=== PATIENT | female | born 1965 | race Caucasian/White ===

== ENCOUNTER 2017-11-23 09:14 | Emergency (ER) | payer OTHER ==
[~2017-11-23] VITALS: Ht 170.2 cm; Wt 77.1 kg
[2017-11-23 09:14] VITALS: BP 132/78
[~2017-11-23 09:14] MED LIST: GUAI600T47 PO; SODI30SP NS
[2017-11-23] MEDS ORDERED: IPRATRPIUM/ALBUTEROL 0.5/2.5MG 3 ML NEBU. ONE (09:21)
[2017-11-23] MEDS ORDERED: IPRATRPIUM/ALBUTEROL 0.5/2.5MG 3 ML NEBU. NEB ONE (09:30)
[2017-11-23] MEDS ORDERED: predniSONE 20 MG TABLET PO ONE (10:15)
--- NOTE | 2017-11-23 10:25 | RAD ---
PA and lateral chest radiograph. History: Shortness air. Comparison: None. Findings: Cardiac silhouette is borderline in size. Bilateral lung bright appear clear without evidence of infiltrate, effusion, or pneumothorax. Bilateral long posterior spinal fusion rods are seen involving the thoracic and lumbar spine as well as multiple interlocking screws and a cerclage wires. S-shaped scoliosis of the thoracic and visualized lumbar spine is seen. Impression: 1. No acute cardiopulmonary process. 2. Borderline enlargement of cardiac silhouette. Electronically signed by: Malachi Campbell MD (11/23/2017 10:21 AM) [place] [id number]
[2017-11-23] MEDS ORDERED: ALBU8.5H8 INH (10:43)
[2017-11-23] MEDS ORDERED: PRED50TA PO (10:43)
--- NOTE | 2017-11-23 11:05 | ED.ADGEN ---
Past History Past Medical History: No Pertinent History, Other Past Surgical History: No Surgical History, Other Alcohol Use: Occasionally Drug Use: None Adult General Chief Complaint Chief Complaint Shortness of breath HPI HPI Patient is a 52-year-old female with remote history of bronchopneumonia bronchospasm presents with acute shortness breath with wheezing this morning after walking outdoors. Patient reports nonproductive cough, and chest tightness. Symptoms significant improved after arriving to the ED. No fever chills, nausea vomiting and sweats. No other acute symptoms or complaints. Patient is a nonsmoker. [] Review of Systems Review of Systems Review symptoms as per history of present illness. All other review symptoms are negative. All other systems were reviewed and found to be within normal limits, except as documented in this note. Current Medications Current Medications Current Medications Medications (Trade) Dose Ordered Sig/Loan Start Time Stop Time Status Last Admin Dose Admin Albuterol/ Ipratropium (Duoneb) 3 ml STK-MED ONCE 11/23/17 09:21 11/23/17 09:22 DC Prednisone (Prednisone) 60 mg 1X ONCE 11/23/17 10:15 11/23/17 10:16 DC 11/23/17 10:11 60 MG Allergies Allergies Allergies Coded Allergies Type Severity Reaction Last Updated Verified codeine Allergy Intermediate 03/24/14 Yes lactose Allergy Mild Diarrhea 03/24/14 Yes naproxen Adverse Reaction Intermediate MIGRAINE 03/24/14 No Physical Exam Physical Exam Constitutional: Well developed, well nourished, no acute distress, non-toxic appearance. [] HENT: Normocephalic, atraumatic, bilateral external ears normal, oropharynx moist, no oral exudates, nose normal. [] Eyes: PERRLA, EOMI, conjunctiva normal, no discharge. [] Neck: Normal range of motion, no tenderness, supple, no stridor. [] Cardiovascular:Heart rate regular rhythm, no murmur [] Lungs & Thorax: Respirations nonlabored, mildly diminished with coarse breath sounds bilaterally.[] Abdomen: Bowel sounds normal, soft, no tenderness, no masses, no pulsatile masses. [] Skin: Warm, dry, no erythema, no rash. [] Back: No illnesses noted.. [] Extremities: No tenderness, no cyanosis, no clubbing, ROM intact, no edema. [] Neurologic: Alert and oriented X 3, normal motor function, normal sensory function, no focal deficits noted. [] Psychologic: Affect normal, judgement normal, mood normal. [] Current Patient Data Vital Signs Vital Signs Date Time Temp Pulse Resp B/P (MAP) Pulse Ox O2 Delivery O2 Flow Rate FiO2 11/23/17 10:04 72 20 93 Room Air 11/23/17 09:14 97.7 EKG EKG [] Radiology/Procedures Radiology/Procedures [Chest x-ray: No acute cardiopulmonary disease.] Course & Med Decision Making Course & Med Decision Making Pertinent Labs and Imaging studies reviewed. (See chart for details) [Acute bronchitis with bronchospasm. Symptoms significantly improved. Return to the ED if new or worsening symptoms. ] Final Impression Final Impression [1. Acute bronchitis with bronchospasm] Dragon Disclaimer Dragon Disclaimer This electronic medical record was generated, in whole or in part, using a voice recognition dictation system. TAJ HENDERSON DO Nov 23, 2017 11:05
== END 2017-11-23 10:50 | disposition home or self-care (01) ==
LOC: ER 09:14
DX: J20.9 Acute bronchitis, unspecified (principal); Z88.5 Allergy status to narcotic agent; Z88.6 Allergy status to analgesic agent; Z91.011 Allergy to milk products
CPT/HCPCS: 71046; 94640; 99284; J7512; J7620

== ENCOUNTER 2018-07-24 09:59 | Emergency (ER) | payer OTHER ==
[~2018-07-24] VITALS: Ht 170.2 cm; Wt 66.2 kg
[~2018-07-24 09:59] MED LIST changes: +ALBU2.5V8 INH; +PRED50TA PO
--- NOTE | 2018-07-24 10:44 | PHYS DOC ---
Past History Past Medical History: No Pertinent History, Other Past Surgical History: No Surgical History, Other Alcohol Use: Occasionally Drug Use: None Adult General Chief Complaint Chief Complaint: BACK INJURY HPI HPI 53-year-old female presents with left rib pain and low back pain. 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 She went to sit down and didn't realize that her chair had been moved. The patient fell to the floor but struck the left lower ribs on the front of the chair as she fell. It knocked the wind out of her for a minute or 2. Patient thought that she was okay and continued with her day. Last night she had some pain and took a muscle relaxer. She woke up this morning and has bruising in the left lower ribs, posterior and the pain is worse. Her pain is moderate in intensity, but can be severe with deep breathing. She has a history of multiple level fusions in her back. She is wants to make sure she has never broken rib or disruption to her previous surgeries. She denies hitting her head or loss of consciousness. She has no other complaints. Review of Systems Review of Systems Constitutional: Denies fever or chills [] Eyes: Denies change in visual acuity, redness, or eye pain [] HENT: Denies nasal congestion or sore throat [] Respiratory: Denies cough or shortness of breath [] Cardiovascular: No additional information not addressed in HPI [] GI: Denies abdominal pain, nausea, vomiting, bloody stools or diarrhea [] : Denies dysuria or hematuria [] Musculoskeletal: Left low back pain, left rib pain[] Integument: Denies rash or skin lesions [] Neurologic: Denies headache, focal weakness or sensory changes [] Endocrine: Denies polyuria or polydipsia [] All other systems were reviewed and found to be within normal limits, except as documented in this note. Allergies Allergies Allergies Coded Allergies Type Severity Reaction Last Updated Verified codeine Allergy Intermediate 03/24/14 Yes lactose Allergy Mild Diarrhea 03/24/14 Yes naproxen Adverse Reaction Intermediate MIGRAINE 03/24/14 No Physical Exam Physical Exam Constitutional: Well developed, well nourished, no acute distress, non-toxic appearance. [] HENT: Normocephalic, atraumatic, bilateral external ears normal, oropharynx moist, no oral exudates, nose normal. [] Eyes: PERRLA, EOMI, conjunctiva normal, no discharge. [] Neck: Normal range of motion, no tenderness, supple, no stridor. [] Cardiovascular:Heart rate regular rhythm, no murmur [] Lungs & Thorax: Bilateral breath sounds clear to auscultation. Bruising over the, posterior, inferior ribs with tenderness to palpation.[] Abdomen: Bowel sounds normal, soft, no tenderness, no masses, no pulsatile masses. [] Skin: Warm, dry, no erythema, no rash. [] Back: No tenderness over the bony prominences of the thoracics and lumbar. no CVA tenderness. [] Extremities: No tenderness, no cyanosis, no clubbing, ROM intact, no edema. [] Neurologic: Alert and oriented X 3, normal motor function, normal sensory function, no focal deficits noted. [] Psychologic: Affect normal, judgement normal, mood normal. [] Current Patient Data Vital Signs Vital Signs Date Time Temp Pulse Resp B/P (MAP) Pulse Ox O2 Delivery O2 Flow Rate FiO2 07/24/18 10:10 97.8 72 20 98 Room Air EKG EKG [] Radiology/Procedures Radiology/Procedures [] Impressions: Rib series including frontal chest x-ray and 3 views left RIBS 07/24/2018 INDICATION: Left rib pain following fall with trauma COMPARISON STUDY: Chest radiograph November 23, 2017 FINDINGS:: No pneumothorax or pleural effusion is seen. Lungs are grossly clear. Dextrocurvature thoracic spine with extensive spinal hardware noted. There is a minimally displaced fracture of the posterior left ninth rib. No other fractures are identified. IMPRESSION: 1.Minimally displaced fracture, posterior left ninth rib. 2. No other acute cardiopulmonary process is identified. Electronically signed by: Dwight Garzon MD (07/24/2018 11:28 AM) [facility] DICTATED AND SIGNED BY: DWIGHT GARZON MD DATE: 07/24/18 1128 CC: TAJ HAINES DO; PCP,UNKNOWN ~ Three-view lumbar spine series Clinical indications: Fall today hitting back and left lateral side of ribs on a chair. Back pain. History of scoliosis with hardware. FINDINGS: Moderate levoscoliosis is seen. Stabilization Gomez metallic rods are in place. The rods and transpedicular screws are intact within the lumbar spine. Anterior lumbar fusion hardware is seen. Lumbar spine is fused from L1 through L5. No malalignment is seen in the anterior posterior dimension and no anterolisthesis is seen. No compression fracture or discitis or lytic process is seen. There is mild degenerative endplate spurring and disc space narrowing at T12-L1 and L5-S1. IMPRESSION: No acute compression fracture. Electronically signed by: Trent Jacobs MD (07/24/2018 11:27 AM) [facility] DICTATED AND SIGNED BY: TRENT JACOBS MD DATE: 07/24/18 1127 CC: TAJ HAINES DO; PCP,UNKNOWN ~ Course & Med Decision Making Course & Med Decision Making Pertinent Labs and Imaging studies reviewed. (See chart for details) The patient does have a single minimally displaced rib fracture. I will prescribed Cyclone 5/325 for her pain. He'll follow up with her PCP if further medication as needed. [] Dragon Disclaimer Dragon Disclaimer This electronic medical record was generated, in whole or in part, using a voice recognition dictation system. Departure Departure: Impression: Primary Impression: Closed rib fracture Disposition: 01 HOME, SELF-CARE Condition: STABLE Referrals: PCP,UNKNOWN (PCP) Patient Instructions: Rib Fracture Scripts Hydrocodone Bit/Acetaminophen (NORCO 5-325 TABLET) 1 Each Tablet 1 TAB PO PRN Q6HRS PRN for PAIN, #20 TAB 0 Refills Prov: TAJ HAINES DO 07/24/18 Problem Qualifiers Primary Impression: Closed rib fracture Encounter type: initial encounter Rib fracture type: single rib Laterality : left Qualified Codes: S22.32XA - Fracture of one rib, left side, initial encounter for closed fracture TAJ HAINES DO Jul 24, 2018 10:44
--- NOTE | 2018-07-24 11:30 | RAD ---
Three-view lumbar spine series Clinical indications: Fall today hitting back and left lateral side of ribs on a chair. Back pain. History of scoliosis with hardware. FINDINGS: Moderate levoscoliosis is seen. Stabilization Gomez metallic rods are in place. The rods and transpedicular screws are intact within the lumbar spine. Anterior lumbar fusion hardware is seen. Lumbar spine is fused from L1 through L5. No malalignment is seen in the anterior posterior dimension and no anterolisthesis is seen. No compression fracture or discitis or lytic process is seen. There is mild degenerative endplate spurring and disc space narrowing at T12-L1 and L5-S1. IMPRESSION: No acute compression fracture. Electronically signed by: Dave Jacobs MD (07/24/2018 11:27 AM) [facility]
--- NOTE | 2018-07-24 11:31 | RAD ---
Rib series including frontal chest x-ray and 3 views left RIBS 07/24/2018 INDICATION: Left rib pain following fall with trauma COMPARISON STUDY: Chest radiograph November 23, 2017 FINDINGS:: No pneumothorax or pleural effusion is seen. Lungs are grossly clear. Dextrocurvature thoracic spine with extensive spinal hardware noted. There is a minimally displaced fracture of the posterior left ninth rib. No other fractures are identified. IMPRESSION: 1.Minimally displaced fracture, posterior left ninth rib. 2. No other acute cardiopulmonary process is identified. Electronically signed by: Dwight Gonzales MD (07/24/2018 11:28 AM) [facility]
[2018-07-24] MEDS ORDERED: HYDR-3165 PO (11:48)
[2018-07-24 11:50] VITALS: BP 146/78
== END 2018-07-24 11:50 | disposition home or self-care (01) ==
LOC: ER 09:59
DX: S22.32XA Fracture of one rib, left side, initial encounter for closed fracture (principal); M54.5 Low back pain; Z88.5 Allergy status to narcotic agent; Z88.6 Allergy status to analgesic agent; Z88.8 Allergy status to other drugs, medicaments and biological substances; W07.XXXA Fall from chair, initial encounter; Y93.89 Activity, other specified; Y92.218 Other school as the place of occurrence of the external cause; Y99.0 Civilian activity done for income or pay
CPT/HCPCS: 71101; 72100; 99284

== ENCOUNTER 2019-04-01 18:52 | Emergency (ER) | payer OTHER ==
[~2019-04-01] VITALS: Ht 170.2 cm; Wt 69.9 kg
[~2019-04-01 18:52] MED LIST changes: +HYDR-3165 PO
--- NOTE | 2019-04-01 19:00 | PHYS DOC ---
Past History Past Medical History: Migraines, Other Past Surgical History: Other Alcohol Use: Rarely Drug Use: None Adult General Chief Complaint Chief Complaint: ABDOMINAL PAIN..." I got this bad epigastic pain... it started yesterday after a high fat meal....I was thinking it was my hiatal hernia... but I guess it could be gall bladder... my mom had gallbladder problems about my age... I laided down .. the pain went away but the pressure never did...." [facility] HPI Patient is a 54 year old female who presents with above hx and complaints epigastric and right upper quadrant abdomen pain. Pain is described as pressure, burning that seems to radiate up to mid chest.. Patient rates the pain currently 6-7 out of 10. Patient denies any travel, trauma, specific ill contacts, or intake of bad food. No history of immunosuppression. 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 Has had 1 loose stool. Pain is associated with nausea. Patient normally follows at [facility]. Review of Systems Review of Systems Constitutional: Denies fever or chills [] Eyes: Denies change in visual acuity, redness, or eye pain [] HENT: Denies nasal congestion or sore throat [] Respiratory: Denies cough or shortness of breath [] Cardiovascular: No additional information not addressed in [facility] [] GI: Complaints of epigastric and right upper quadrant abdominal pain, nausea. Denies, vomiting, bloody stools or diarrhea [] : Denies dysuria or hematuria [] Musculoskeletal: Denies back pain or joint pain [] Integument: Denies rash or skin lesions [] Neurologic: Denies headache, focal weakness or sensory changes [] Endocrine: Denies polyuria or polydipsia [] All other systems were reviewed and found to be within normal limits, except as documented in this note. Family History Family History Gallbladder disease with mother in her 50s Current Medications Current Medications See nursing for home meds Allergies Allergies Allergies Coded Allergies Type Severity Reaction Last Updated Verified codeine Allergy Intermediate 03/24/14 Yes lactose Allergy Mild Diarrhea 03/24/14 Yes naproxen Adverse Reaction Intermediate MIGRAINE 03/24/14 No Physical Exam Physical Exam Constitutional: In acute distress, non-toxic appearance. [] HENT: Normocephalic, atraumatic, bilateral external ears normal, oropharynx moist, no oral exudates, nose normal. [] Eyes: PERRLA, EOMI, conjunctiva normal, no discharge. [] Neck: Normal range of motion, no tenderness, supple, no stridor. [] Cardiovascular: Bradycardia Heart rate regular rhythm, no murmur [] Lungs & Thorax: Bilateral breath sounds clear to auscultation [] Abdomen: Bowel sounds are active, soft, epigastric and right upper quadrant tenderness, no masses, no pulsatile masses. Rebound to right upper quadrant Skin: Warm, dry, no erythema, no rash. [] Back: No tenderness, no CVA tenderness. [] Extremities: No tenderness, no cyanosis, no clubbing, ROM intact, no edema. [] No obvious psoas sign Neurologic: Alert and oriented X 3, normal motor function, normal sensory fu nction, no focal deficits noted. [] Psychologic: Affect anxious, judgement normal, mood normal. [] EKG EKG My interpretation EKG shows a sinus bradycardia cardiac 51 bpm. Mild leftward axis and T-wave changes. But no findings acute STEMI with contralateral changes.[] Radiology/Procedures Radiology/Procedures [][place] [id number] IMAGING REPORT Signed PATIENT: MARY LAUREANO MACCOUNT: [id number] : 1965 LOCATION: ER AGE: 54 SEX: F EXAM STATUS: REG ER ORD. PHYSICIAN: HOMAR WELLS MD REASON: Abdomen pain, nausea PROCEDURE: CT ABD PELV W/ORAL&IV CONTRAST Examination: CT ABD PELV W/ORAL IV CONTRAST History: Abdominal pain and nausea Comparison/Correlation: None Findings: Axial images of the abdomen and pelvis were obtained following IV and oral contrast. Sagittal and coronal reformatted images were provided. Minimal discoid linear atelectasis at the left lung base is present. Liver, spleen, adrenal glands, and pancreas are unremarkable. Bilateral hydronephrosis is evident to the ureteropelvic junction level. There is no bowel obstruction. No extraluminal gas. No ascites or pelvic free fluid. No enlarged abdominal or pelvic lymph nodes. Diverticulosis of the colon is present. No inflammatory change about the cecum. Prominent ovarian vein bilaterally noted. Prominent pelvic vasculature about the uterus noted raising question of pelvic congestion syndrome. Urinary bladder is unremarkable. Retroflexed uterus noted. Bilateral spinal rods are noted with associated screws throughout the visualized thoracic and lumbar spine Impression: Diverticulosis. No obstruction or extraluminal gas. No inflammatory findings. Bilateral hydronephrosis. Bilateral ureteral pelvic junction obstruction suspected. Correlate with history in determining further evaluation. Enlarged ovarian veins and pelvic vasculature. Correlate for possible pelvic congestion syndrome. PQRS Compliance Statement: One or more of the following individualized dose reduction techniques were utilized for this examination: 1. Automated exposure control 2. Adjustment of the mA and/or kV according to patient size 3. Use of iterative reconstruction technique Electronically signed by: Willie Feliciano MD (04/01/2019 10:35 PM) [facility] DICTATED AND SIGNED BY: WILLIE FELICIANO MD DATE: 04/01/192234 CC: HOMAR WELLS MD; PCP,NO ~ Course & Med Decision Making Course & Med Decision Making Pertinent Labs and Imaging studies reviewed. (See chart for details) Patient's stay on a clear fluid diet for the next 2 days. No solids or milk products. Must allow bowel rest. Push fluids. Take Tylenol and ibuprofen for pain. Take Keflex 500 mg 3 times a day. Follow-up urine cultures. Must follow-up with urology to determine etiology of UVJ- Hydronephrosis. Follow up urine cultures. Return if any concerns. Consider EGD and biliary colic evaluation outpatient . Takes Zantac 150 mg twice day for gastritis. Impression: 1. Abdomen pain epigastric and right upper quadrant 2. Biliary Colic 3. Gastritis 4. Urinary Tract Infection 5. Bilateral UVJ Hydronephrosis [] Dragon Disclaimer Dragon Disclaimer This electronic medical record was generated, in whole or in part, using a voice recognition dictation system. Departure Departure: Disposition: 01 HOME/RESIDENCE PRIOR TO ADM Condition: STABLE Referrals: PCP,UNKNOWN (PCP) Scripts Ranitidine Hcl (ZANTAC) 150 Mg Tablet 150 MG PO BID for gastritis, #30 TAB Prov: HOMAR WELLS MD 04/01/19 Cephalexin (KEFLEX) 500 Mg Capsule 500 MG PO TID for uti for 10 Days, BOTTLE Prov: HOMAR WELLS MD 04/01/19 Rey Disclaimer This chart was dictated in whole or in part using Voice Recognition software in a busy, high-work load, and often noisy Emergency Department environment. It may contain unintended and wholly unrecognized errors or omissions. Dragon Disclaimer This chart was dictated in whole or in part using Voice Recognition software in a busy, high-work load, and often noisy Emergency Department environment. It may contain unintended and wholly unrecognized errors or omissions. HOMAR WELLS MD Apr 01, 2019 19:00
[2019-04-01] MEDS ORDERED: IV RINGERS SOLUTION,LACTATED 1,000 ML IV SCH (19:07)
[2019-04-01 19:24] LABS: BILIRUBIN,URINE NEG (NEG); CLARITY,URINE HAZY; COLOR,URINE YELLOW; GLUCOSE,URINE NEG (NEG)
[2019-04-01 19:25] LABS: BACTERIA,URINE MOD /HPF (0-FEW); NITRITE,URINE POS (NEG); SQUAMOUS EPITHELIAL CELL,UR OCC /LPF; UROBILINOGEN,URINE 0.2 mg/dL (0.2 mg/dL); WBC,URINE 20-40 /HPF (0-4)
[2019-04-01] MEDS ORDERED: IOHEXOL 240 MG/ML 50ML VIAL. PO ONE ×2 (19:30)
[2019-04-01] MEDS ORDERED: LIDO:MAALOX 1:1 20 ML SINGLE DOSE. PO ONE (19:30)
[2019-04-01] MEDS ORDERED: FAMOTIDINE 20 MG/2 ML VIAL IVP ONE (19:30)
[2019-04-01] MEDS ORDERED: IOHEXOL 300 MG/ML 75 ML VIAL. IV ONE ×2 (19:30)
[2019-04-01] MEDS ORDERED: ONDANSETRON PF 4 MG/2 ML VIAL. IVP ONE (19:30)
[2019-04-01] MEDS ORDERED: MORPHINE SULFATE 10 MG/ML SYRINGE. SQ ONE (19:30)
[2019-04-01 19:32] LABS: BASO # 0.1 x10^3/uL (0.0-0.2); BASO % 1 % (0-3); EOS # 0.1 x10^3/uL (0.0-0.7); EOS % 1 % (0-3); HEMATOCRIT 40.8 % (36.0-47.0); HEMOGLOBIN 13.4 g/dL (12.0-15.5); LYMPH # 3.2 x10^3/uL (1.0-4.8); LYMPH % 46 % (24-48); MEAN CORPUSCULAR HEMOGLOBIN 30 pg (25-35); MEAN CORPUSCULAR HGB CONC 33 g/dL (31-37); MEAN CORPUSCULAR VOLUME 92 fL (79-100); MONO # 0.6 x10^3/uL (0.0-1.1); MONO % 10 % (0-9); NEUT # 2.9 x10^3uL (1.8-7.7); NEUT % 42 % (31-73); PLATELET COUNT 333 x10^3/uL (140-400); RED BLOOD COUNT 4.44 x10^6/uL (3.50-5.40); RED CELL DISTRIBUTION WIDTH 13.2 % (11.5-14.5); WHITE BLOOD COUNT 6.8 x10^3/uL (4.0-11.0)
[2019-04-01 20:01] LABS: ALBUMIN 3.9 g/dL (3.4-5.0); CALCIUM 9.2 mg/dL (8.5-10.1); CREATININE 0.7 mg/dL (0.6-1.0); DIRECT BILIRUBIN 0.1 mg/dL (0.0-0.2); GFR 86.6; POTASSIUM 3.7 mmol/L (3.5-5.1); TOTAL BILIRUBIN 0.3 mg/dL (0.2-1.0); TOTAL PROTEIN 7.5 g/dL (6.4-8.2)
[2019-04-01 21:28] LABS: BARBITURATES NEG (NEG); BENZODIAZEPINES NEG (NEG); CANNABINOIDS NEG (NEG); COCAINE NEG (NEG); METHADONE NEG (NEG); OPIATES NEG (NEG); PHENCYCLIDINE NEG (NEG)
[2019-04-01 21:33] LABS: AMPHETAMINE/METHAMPHETAMINE NEG (NEG)
[2019-04-01] MEDS ORDERED: CONTRAST GIVEN MC PRN (22:15)
[2019-04-01] MEDS ORDERED: IV NORMAL SALINE 50ML 50 ML ONE (22:16)
[2019-04-01] MEDS ORDERED: cefTRIAXone SODIUM 1 GM VIAL ONE (22:16)
--- NOTE | 2019-04-01 22:38 | RAD ---
Examination: CT ABD PELV W/ORAL IV CONTRAST History: Abdominal pain and nausea Comparison/Correlation: None Findings: Axial images of the abdomen and pelvis were obtained following IV and oral contrast. Sagittal and coronal reformatted images were provided. Minimal discoid linear atelectasis at the left lung base is present. Liver, spleen, adrenal glands, and pancreas are unremarkable. Bilateral hydronephrosis is evident to the ureteropelvic junction level. There is no bowel obstruction. No extraluminal gas. No ascites or pelvic free fluid. No enlarged abdominal or pelvic lymph nodes. Diverticulosis of the colon is present. No inflammatory change about the cecum. Prominent ovarian vein bilaterally noted. Prominent pelvic vasculature about the uterus noted raising question of pelvic congestion syndrome. Urinary bladder is unremarkable. Retroflexed uterus noted. Bilateral spinal rods are noted with associated screws throughout the visualized thoracic and lumbar spine Impression: Diverticulosis. No obstruction or extraluminal gas. No inflammatory findings. Bilateral hydronephrosis. Bilateral ureteral pelvic junction obstruction suspected. Correlate with history in determining further evaluation. Enlarged ovarian veins and pelvic vasculature. Correlate for possible pelvic congestion syndrome. PQRS Compliance Statement: One or more of the following individualized dose reduction techniques were utilized for this examination: 1. Automated exposure control 2. Adjustment of the mA and/or kV according to patient size 3. Use of iterative reconstruction technique Electronically signed by: Willie Weiss MD (04/01/2019 10:35 PM) [facility]
[2019-04-01] MEDS ORDERED: CEPH-264 PO (23:22)
[2019-04-01] MEDS ORDERED: RANI-376 PO (23:22)
[2019-04-01 23:27] VITALS: BP 144/68
--- NOTE | 2019-04-02 02:45 | RAD ---
Exam: Acute abdominal series INDICATION: Abdominal TECHNIQUE: Frontal view of the chest with upright and supine views of the abdomen Comparisons: None FINDINGS: The cardiomediastinal silhouette and pulmonary vessels are within normal limits. The lung and pleural spaces are clear. Air and stool are noted throughout the colon to level of the rectum in a nonobstructive bowel gas pattern. No suspicious masses or calcifications. No free air. Gomez rods at the thoracolumbar spine are noted. IMPRESSION: 1. No acute cardiopulmonary process. 2. Nonobstructive bowel gas Electronically signed by: Harry Cartagena MD (04/02/2019 2:42 AM) [facility]
--- NOTE | 2019-04-02 06:13 | EKG ---
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
== END 2019-04-01 23:28 | disposition home or self-care (01) ==
LOC: ER 18:52
DX: K80.50 Calculus of bile duct without cholangitis or cholecystitis without obstruction (principal); K29.70 Gastritis, unspecified, without bleeding; N13.2 Hydronephrosis with renal and ureteral calculous obstruction; N39.0 Urinary tract infection, site not specified; G43.909 Migraine, unspecified, not intractable, without status migrainosus; Z88.5 Allergy status to narcotic agent; Z88.8 Allergy status to other drugs, medicaments and biological substances
CPT/HCPCS: 36415; 74022; 74177; 80048; 80076; 80307; 81001; 82150; 82550; 83690; 84484; 85025; 85610; 85730; 87086; 93005; 96361; 96365; 96372; 96375; 99285; J0696; J2270; J2405; J3490; J7120; Q9966; Q9967

== ENCOUNTER 2020-07-31 04:41 | Emergency (ER) | payer OTHER ==
[~2020-07-31] VITALS: Ht 170.2 cm; Wt 72.7 kg
[~2020-07-31 04:41] MED LIST changes: +CEPH-264 PO; +RANI-376 PO
[2020-07-31 04:44] VITALS: BP 132/96
--- NOTE | 2020-07-31 04:54 | PHYS DOC ---
Past History Past Medical History: GERD, Migraines, Other Additional Past Medical Histor: hiatal hernia Past Surgical History: Other Additional Past Surgical Histo: spinal fusion Alcohol Use: Rarely Drug Use: None General Adult EDM: Chief Complaint: EARACHE/EAR PAIN HPI: HPI: ".. I got a really bad ear ache..on the right.. and now there is this drainage..." Patient is a 55 year old female dependent who presents with right ear pain that started tonight. Patient does have a bloody serous drainage from her right ear. Does have a ruptured TM. Patient also has injection and swelling of left TM. Patient has had recently some congestion. No history of immun osuppression. No history of recent travel outside the [place] area. No history of specific ill contacts. Normally healthy. Up-to-date with vaccinations. Pt. rates Rt ear pain as 11/17. Review of Systems: Review of Systems: Constitutional: Subjective fever Eyes: Denies change in visual acuity HENT: History of nasal congestion and right ear pain Respiratory: Denies cough or shortness of breath Cardiovascular: Denies chest pain or edema GI: Denies abdominal pain, nausea, vomiting, bloody stools or diarrhea : Denies dysuria Musculoskeletal: Denies back pain or joint pain Integument: Denies rash Neurologic: Denies headache, focal weakness or sensory changes Endocrine: Denies polyuria or polydipsia Lymphatic: Denies swollen glands Psychiatric: Denies depression or anxiety Family History: Family History: Noncontributory Current Medications: Current Meds: See nursing for home meds Allergies: Allergies: Allergies Coded Allergies Type Severity Reaction Last Updated Verified codeine Allergy Intermediate 03/24/14 Yes lactose Allergy Mild Diarrhea 03/24/14 Yes naproxen Adverse Reaction Intermediate MIGRAINE 03/24/14 No Physical Exam: PE: Constitutional: in acute distress, non-toxic appearance. [] HENT: Normocephalic, atraumatic, bilateral external ears injected, bilateral TMs are injected, right TM has ruptured and is draining serous bloody discharge, oropharynx moist, no oral exudates, nose swollen turbinates and clear rhinorrhea Eyes: PERRLA, EOMI, conjunctiva normal, no discharge. [] Neck: Normal range of motion, no tenderness, supple, no stridor. [] Cardiovascular:Heart rate regular rhythm, no murmur [] Lungs & Thorax: Bilateral breath sounds equal at apex auscultation [] Abdomen: Bowel sounds normal, soft, no tenderness, no masses, no pulsatile masses. [] Skin: Warm, dry, no erythema, no rash. [] Back: No tenderness, no CVA tenderness. Old scar. Extremities: No tenderness, no cyanosis, no clubbing, ROM intact, no edema. [] Neurologic: Alert and oriented X 3, normal motor function, normal sensory function, no focal deficits noted. [] Psychologic: Affect anxious, judgement normal, mood normal. [] EKG: EKG: [] Radiology/Procedures: Radiology/Procedures: [] Heart Score: C/O Chest Pain: N/A Risk Factors: Risk Factors: DM, Current or recent (<one month) smoker, HTN, HLP, family history of CAD, obesity. Risk Scores: Score 0 - 3: 2.5% MACE over next 6 weeks - Discharge Home Score 4 - 6: 20.3% MACE over next 6 weeks - Admit for Clinical Observation Score 7 - 10: 72.7% MACE over next 6 weeks - Early Invasive Strategies Course & Med Decision Making: Course & Med Decision Making Pertinent Labs and Imaging studies reviewed. (See chart for details) Patient keep water out of her right ear. Patient use eardrops Cortisporin 2 drops to each ear 4 times a day. Patient take Augmentin 875 twice a day. Follow-up with primary care. May take Benadryl 50 mg up to 4 times a day to relieve congestion and drainage. Take Tylenol and ibuprofen for pain. Return if any concerns. At time of discharge patient reported marked improvement of pain. Impression: 1. Bilateral otitis media and otitis externa 2. Ruptured right TM [] Dragon Disclaimer: Dragon Disclaimer: This electronic medical record was generated, in whole or in part, using a voice recognition dictation system. Departure Departure: Referrals: RASHAWN MARTIN (PCP) Scripts Amoxicillin/Potassium Clav (AUGMENTIN 875-125 TABLET) 1 Each Tablet 1 TAB PO BID for otitis for 10 Days, #20 TAB 0 Refills Prov: HOMAR WELLS MD 07/31/20 Rey Disclaimer This chart was dictated in whole or in part using Voice Recognition software in a busy, high-work load, and often noisy Emergency Department environment. It may contain unintended and wholly unrecognized errors or omissions. HOMAR WELLS MD Jul 31, 2020 04:54
[2020-07-31] MEDS ORDERED: AMOX1TAB61 PO (05:26)
[2020-07-31] MEDS ORDERED: NEOMYCIN/POLYMYXIN/HC OTIC SUSPENSION 10ML BOTTLE. AU ONE (05:30)
[2020-07-31] MEDS ORDERED: AMOXICILLIN/K CLAV 875/125MG TABLET. PO ONE (05:30)
[2020-07-31] MEDS ORDERED: ACETAMINOPHEN 500 MG TABLET PO ONE (05:30)
== END 2020-07-31 05:53 | disposition home or self-care (01) ==
LOC: ER 04:41
DX: H66.93 Otitis media, unspecified, bilateral (principal); H60.93 Unspecified otitis externa, bilateral; H72.91 Unspecified perforation of tympanic membrane, right ear; K21.9 Gastro-esophageal reflux disease without esophagitis; G43.909 Migraine, unspecified, not intractable, without status migrainosus; Z88.5 Allergy status to narcotic agent; Z91.011 Allergy to milk products; Z88.8 Allergy status to other drugs, medicaments and biological substances
CPT/HCPCS: 99284

== ENCOUNTER 2020-08-01 05:16 | Emergency (ER) | payer OTHER ==
[~2020-08-01] VITALS: Ht 170.2 cm; Wt 72.7 kg
[~2020-08-01 05:16] MED LIST changes: +AMOX1TAB61 PO
[2020-08-01 05:52] VITALS: BP 144/98
[2020-08-01] MEDS ORDERED: DEXAMETHASONE SOD PHOS 10 MG/ML VIAL. ONE (05:59)
[2020-08-01] MEDS ORDERED: ACETAMINOPHEN 500 MG TABLET PO ONE (06:00)
--- NOTE | 2020-08-01 06:02 | PHYS DOC ---
Past History Past Medical History: GERD, Migraines, Other Additional Past Medical Histor: hiatal hernia Past Surgical History: Other Additional Past Surgical Histo: spinal fusion Alcohol Use: Rarely Drug Use: None Adult General Chief Complaint Chief Complaint: HEADACHE HPI HPI Patient is a 55-year-old female with a past medical history significant for migraines who presents to the emergency department with a migraine. States she was in the emergency department yesterday and was diagnosed with ear infection and a ruptured tympanic membrane and started on Augmentin. States that she began taking that as prescribed. States that she took a Tylenol 3 with codeine yesterday afternoon about 2:00. States that shortly after that is when her migraine began. Cannot remember where she got the Tylenol 3 from. States her migraine is typical for her, whole head, 7 out of 10, dull and achy in nature with some photophobia, phonophobia and nausea. States she gets approximately 1- 2 migraines a month. Denies changes in vision, chest pain, shortness of breath, abdominal pain, dysuria, hematuria, diarrhea or blood in the stool. Denies any recent travel, traumas, fevers. Denies any numbness/weakness/tingling. Review of Systems Review of Systems Constitutional: Denies fever or chills [] Eyes: Denies change in visual acuity, redness, or eye pain [] HENT: Denies nasal congestion or sore throat [] Respiratory: Denies cough or shortness of breath [] Cardiovascular: No additional information not addressed in HPI [] GI: Denies abdominal pain, nausea, vomiting, bloody stools or diarrhea [] : Denies dysuria or hematuria [] Musculoskeletal: Denies back pain or joint pain [] Integument: Denies rash or skin lesions [] Neurologic: Denies headache, focal weakness or sensory changes [] Endocrine: Denies polyuria or polydipsia [] All other systems were reviewed and found to be within normal limits, except as documented in this note. Current Medications Current Medications Current Medications Medications (Trade) Dose Ordered Sig/Loan Start Time Stop Time Status Last Admin Dose Admin Acetaminophen (Tylenol) 1,000 mg 1X ONCE 08/01/20 06:00 08/01/20 05:38 DC Allergies Allergies Allergies Coded Allergies Type Severity Reaction Last Updated Verified codeine Allergy Intermediate 03/24/14 Yes lactose Allergy Mild Diarrhea 03/24/14 Yes naproxen Adverse Reaction Intermediate MIGRAINE 03/24/14 No Physical Exam Physical Exam Constitutional: Well developed, well nourished, no acute distress, non-toxic appearance. [] HENT: Normocephalic, atraumatic, bilateral external ears normal, left tympanic membrane bulging and right tympanic membrane scarred with possible rupture. Nothing draining from either ear. Oropharynx moist, no oral exudates, nose normal. [] Eyes: PERRLA, EOMI, conjunctiva normal, no discharge. [] Neck: Normal range of motion, no tenderness, supple, no stridor. [] Cardiovascular: Sinus tachycardia Lungs & Thorax: Bilateral breath sounds clear to auscultation [] Abdomen: soft, no tenderness, no masses, no pulsatile masses. [] Skin: Warm, dry, no erythema, no rash. [] Extremities: No tenderness, no cyanosis, no clubbing, ROM intact, no edema. [] Neurologic: Alert and oriented X 3, normal motor function, normal sensory function, cranial nerves intact, able to ambulate no focal deficits noted. [] Psychologic: Affect normal, judgement normal, mood normal. [] Current Patient Data Vital Signs Vital Signs Date Time Temp Pulse Resp B/P (MAP) Pulse Ox O2 Delivery O2 Flow Rate FiO2 08/01/20 05:29 98.2 121 22 133/78 (96) 95 Room Air EKG EKG [] Radiology/Procedures Radiology/Procedures [] Heart Score C/O Chest Pain: No Risk Factors: Risk Factors: DM, Current or recent (<one month) smoker, HTN, HLP, family history of CAD, obesity. Risk Scores: Risk Factors: DM, Current or recent (<one month) smoker, HTN, HLP, family history of CAD, obesity. Course & Med Decision Making Course & Med Decision Making Patient is a 55-year-old female who presents with a chief complaint of migraine headache after starting ear infection medication and not sure if it is the Augmentin or a Tylenol 3 which she got from somewhere else Vital signs notable for tachycardia. Physical exam noted above. Patient given migraine cocktail and fluid. Laboratory analysis pending. Patient transferred to day team for continued evaluation and treatment. [] Dragon Disclaimer Dragon Disclaimer This electronic medical record was generated, in whole or in part, using a voice recognition dictation system. Departure Departure: Impression: Primary Impression: Migraine Additional Impressions: Nausea & vomiting Adverse drug reaction Referrals: RASHAWN MARTIN (PCP) Problem Qualifiers AMADOR SCHULER MD Aug 01, 2020 06:02
[2020-08-01] MEDS ORDERED: ONDANSETRON PF 4 MG/2 ML VIAL. IVP ONE (06:30)
[2020-08-01] MEDS ORDERED: PROCHLORPERAZINE 10 MG/2 ML VIAL. IV ONE (06:30)
[2020-08-01] MEDS ORDERED: diphenhydrAMINE 50 MG/ML VIAL IVP ONE (06:30)
[2020-08-01] MEDS ORDERED: IV RINGERS SOLUTION,LACTATED 1,000 ML IV ONE (06:30)
[2020-08-01] MEDS ORDERED: DEXAMETHASONE SOD PHOS 4 MG/ML VIAL. IVP ONE (06:30)
[2020-08-01 06:38] LABS: BASO # 0.1 x10^3/uL (0.0-0.2); BASO % 1 % (0-3); EOS % 0 % (0-3); HEMATOCRIT 38.8 % (36.0-47.0); HEMOGLOBIN 12.8 g/dL (12.0-15.5); LYMPH # 0.5 x10^3/uL (1.0-4.8); LYMPH % 4 % (24-48); MEAN CORPUSCULAR HEMOGLOBIN 29 pg (25-35); MEAN CORPUSCULAR HGB CONC 33 g/dL (31-37); MEAN CORPUSCULAR VOLUME 89 fL (79-100); MONO # 1.3 x10^3/uL (0.0-1.1); MONO % 9 % (0-9); NEUT # 12.9 x10^3uL (1.8-7.7); NEUT % 87 % (31-73); PLATELET COUNT 259 x10^3/uL (140-400); RED BLOOD COUNT 4.36 x10^6/uL (3.50-5.40); RED CELL DISTRIBUTION WIDTH 14.3 % (11.5-14.5); WHITE BLOOD COUNT 14.7 x10^3/uL (4.0-11.0)
[2020-08-01 06:39] LABS: CALCIUM 8.8 mg/dL (8.5-10.1); CREATININE 0.9 mg/dL (0.6-1.0); GFR 64.5; POTASSIUM 3.3 mmol/L (3.5-5.1)
--- NOTE | 2020-08-01 06:58 | RAD ---
STUDY: CT head without contrast INDICATION: Infection. Headache. Tachycardia. COMPARISON: None. TECHNIQUE: Axial CT imaging through the head without the use of intravenous contrast. Sagittal and co telma reformats were obtained. One or more of the following individualized dose reduction techniques were utilized for this examinat ion: 1. Automated exposure control 2. Adjustment of the mA and/or kV according to patient size 3. Use of iterative reconstruction technique. FINDINGS: No acute intracranial hemorrhage. No midline shift. Ewing-white matter differentiation is maintained w ith hypoattenuation along portions of the left temporal lobe favored artifactual from beam hardening. Somewhat diminished sulcation pattern for patient age. Extra-axial hypoattenuation along the left fr ontal lobe is chronic. The partially imaged orbits are unremarkable. No fluid within the visualized paranasal sinuses. Parti al opacification of the right mastoid air cells. No evidence for ostial lysis in this region. Normall y aerated left mastoid air cells. Small amount of cerumen within the left external auditory canal. No overt periauricular edema. IMPRESSION: 1. No acute intracranial abnormality by CT. Relative paucity of cerebral sulcation for a patient of this age but there is no midline shift or other finding that suggest this is pathologic. If there is ongoing concern MRI could be performed. 2. Partial opacification of the right mastoid air cells without features of erosive otomastoiditis. No typical findings of otitis externa in this patient with a reported ear infection. Electronically signed by: AVA SUN MD (08/01/2020 6:56 AM) [facility]
== END 2020-08-01 07:39 | disposition home or self-care (01) ==
LOC: ER 05:16
DX: R11.2 Nausea with vomiting, unspecified (principal); T36.1X5A Adverse effect of cephalosporins and other beta-lactam antibiotics, initial encounter; T36.0X5A Adverse effect of penicillins, initial encounter; G43.909 Migraine, unspecified, not intractable, without status migrainosus; Y92.89 Other specified places as the place of occurrence of the external cause
CPT/HCPCS: 36415; 70450; 80048; 83605; 85025; 96361; 96374; 96375; 99284; J0780; J1100; J1200; J2405; J7120

== ENCOUNTER 2020-08-03 12:26 | Emergency (ER) | payer OTHER ==
[~2020-08-03] VITALS: Ht 170.2 cm; Wt 72.1 kg
[2020-08-03] MEDS ORDERED: FAMOTIDINE 20 MG/2 ML VIAL IVP ONE (13:15)
[2020-08-03] MEDS ORDERED: ONDANSETRON PF 4 MG/2 ML VIAL. IVP ONE (13:15)
[2020-08-03] MEDS ORDERED: IV NORMAL SALINE 1,000ML 1,000 ML IV SCH (13:15)
--- NOTE | 2020-08-03 13:15 | PHYS DOC ---
Past History Past Medical History: GERD, Migraines, Other Additional Past Medical Histor: hiatal hernia Past Surgical History: Other Additional Past Surgical Histo: spinal fusion Alcohol Use: None Drug Use: None General Adult EDM: Chief Complaint: EARACHE/EAR PAIN HPI: HPI: Patient is a 55-year-old female with a history of a ruptured right tympanic membrane presents to the ED with a chief complaint of earache. Patient states she was seen in the ED 4 days ago For an earache, was told she had a ruptured right TM and was sent home with oral anti-biotics as well as suspension eardrops. She returned to the ED the following day with a migraine, received a head CT which is negative. Patient continues to report bilateral ear pain right worse than left. Associated symptoms are diffuse abdominal pain, nausea, dizziness. states that she has not been eating or drinking hardly the past 2 days because of the pain she has not been communicating at baseline. She denies fever, vomiting, constipation, dysuria, drainage from the ear, trauma to the ear, loss of consciousness, vision changes. reports that this morning he bought a ear cleaning kit [id number] and used it in the ear with a ruptured TM. Review of Systems: Review of Systems: Constitutional: Denies fever or chills Eyes: Denies redness or eye pain HENT: Denies nasal congestion or sore throat. Bilateral ear pain right worse than left. Respiratory: Denies cough or shortness of breath Cardiovascular: Denies chest pain or palpitations GI: Reports abdominal pain, nausea. Denies vomiting : Denies dysuria or hematuria Musculoskeletal: Denies back pain or joint pain Integument: Denies rash or skin lesions Neurologic: Denies headache, focal weakness or sensory changes Complete systems were reviewed and found to be within normal limits, except as documented in this note. Current Medications: Current Meds: Current Medications Medications (Trade) Dose Ordered Sig/Loan Start Time Stop Time Status Last Admin Dose Admin Ondansetron HCl (Zofran) 4 mg 1X ONCE 08/03/20 13:15 08/03/20 13:16 UNV Sodium Chloride 1,000 ml @ 1,000 mls/hr Q1H 08/03/20 13:15 08/03/20 14:14 UNV Allergies: Allergies: Allergies Coded Allergies Type Severity Reaction Last Updated Verified codeine Allergy Intermediate 03/24/14 Yes lactose Allergy Mild Diarrhea 03/24/14 Yes naproxen Adverse Reaction Intermediate MIGRAINE 03/24/14 No Physical Exam: PE: Constitutional: Well developed, in mild distress acute distress, non-toxic appearance, minimally communicating on exam HENT: Normocephalic, atraumatic. Bilateral tympanic membrane erythema. Eyes: PERRL, EOMI, conjunctiva normal, no discharge Neck: Normal range of motion, no tenderness, supple Lungs & Thorax: No respiratory distress, equal chest rise and fall Abdomen: Soft, diffusely tender with voluntary guarding. Skin: Warm, dry, no erythema, no rash Back: No tenderness, no CVA tenderness Extremities: No tenderness, ROM intact, no edema Neurologic: Alert and oriented X 3, normal motor function, normal sensory function, no focal deficits noted Psychologic: Affect normal, judgment normal Current Patient Data: Vital Signs: Vital Signs Date Time Temp Pulse Resp B/P (MAP) Pulse Ox O2 Delivery O2 Flow Rate FiO2 08/03/20 12:35 99.1 20 129/75 (93) 97 Room Air EKG: EKG: [] Radiology/Procedures: Radiology/Procedures: [] Heart Score: C/O Chest Pain: N/A Course & Med Decision Making: Course & Med Decision Making Pertinent Labs and Imaging studies reviewed. (See chart for details) Is a 55-year-old female with history of a ruptured right tympanic membrane who presents the ED with a chief complaint of earache. Patient has been seen in the ED 3 times in the last 4 days for this same chief complaint as well as a migraine headache. That time she has received oral and drop antibiotics as well as a head CT scan which was negative. Patient continues to report uncontrolled pain, abdominal pain, decreased oral intake. Physical exam she is in mild distress, afebrile, with a diffusely tender but soft abdomen with voluntary guarding. Will give fluids check labs, pain control, Zofran in the ED and reassess. Will hold on imaging given recent CT scan pending lab results. No significant laboratory findings, it was noted that the apparently cleaned the ear with an [id number] ear cleaning kit on the side with the ruptured tympanic membrane potentially exacerbating otalgia. Will send home with prescription for hydrocodone, Zofran, otic suspension antibiotics. Extensive discussion with patient and family regarding findings and treatment plan and return precautions, they expressed understanding and were agreeable with discharge plan. Patient stable for discharge with outpatient follow-up [facility] PCP. Discussed findings and plan with patient, who acknowledges understanding and agreement. Rey Disclaimer: Rey Disclaimer: This electronic medical record was generated, in whole or in part, using a voice recognition dictation system. Departure Departure: Impression: Primary Impression: Otalgia of right ear Additional Impression: Dehydration Disposition: HOME / SELF CARE / HOMELESS Condition: STABLE Referrals: RASHAWN MARTIN (PCP) Patient Instructions: Dehydration, Adult, [id number], Eardrum Perforation, [id number] Additional Instructions: Increase fluid hydration. Take prescribed antibiotics as directed. May also take over the counter Ibuprofen for pain or discomfort. Call Dr. Kayden Morocho (ENT) for further evaluation and treatment. [address] , [place] [address] Scripts Neomycin/Polymyxin B Sulf/Hc ([id number] EAR SUSP) 10 Ml Drops.susp 4 DROP RIGHT EAR TID for TM perforation for 7 Days, #10 ML Prov: GIANNI MIRANDA DO 08/03/20 Hydrocodone Bit/Acetaminophen (HYDROCODONE-APAP 5-325 ) 1 Each Tablet 0.5-1 TAB PO PRN Q6HRS PRN for PAIN, #10 TAB 0 Refills Prov: GIANNI MIRANDA DO 08/03/20 Ondansetron (ONDANSETRON ODT) 4 Mg Tab.rapdis 1 TAB PO PRN Q6-8HRS PRN for NAUSEA, #16 TAB Prov: GIANNI MIRANDA DO 08/03/20 GIANNI MIRANDA DO Aug 03, 2020 13:15
[2020-08-03 13:34] LABS: BASO % 0 % (0-3); EOS % 0 % (0-3); HEMATOCRIT 37.9 % (36.0-47.0); HEMOGLOBIN 12.6 g/dL (12.0-15.5); LYMPH # 0.4 x10^3/uL (1.0-4.8); LYMPH % 4 % (24-48); MEAN CORPUSCULAR HEMOGLOBIN 29 pg (25-35); MEAN CORPUSCULAR HGB CONC 33 g/dL (31-37); MEAN CORPUSCULAR VOLUME 88 fL (79-100); MONO # 0.8 x10^3/uL (0.0-1.1); MONO % 7 % (0-9); NEUT % 89 % (31-73); PLATELET COUNT 194 x10^3/uL (140-400); RED BLOOD COUNT 4.31 x10^6/uL (3.50-5.40); RED CELL DISTRIBUTION WIDTH 14.6 % (11.5-14.5); WHITE BLOOD COUNT 11.3 x10^3/uL (4.0-11.0)
[2020-08-03 13:41] LABS: CALCIUM 9.2 mg/dL (8.5-10.1); CREATININE 0.8 mg/dL (0.6-1.0); GFR 73.9; POTASSIUM 3.5 mmol/L (3.5-5.1)
[2020-08-03 13:46] LABS: ALBUMIN/GLOBULIN RATIO 0.6 (1.0-1.7); MAGNESIUM 2.2 mg/dL (1.8-2.4); TOTAL BILIRUBIN 0.8 mg/dL (0.2-1.0)
[2020-08-03 14:50] LABS: SQUAMOUS EPITHELIAL CELL,UR OCC /LPF
[2020-08-03 14:51] LABS: BACTERIA,URINE 0 /HPF (0-FEW); GRANULAR CASTS,URINE FEW /HPF; WBC,URINE RARE /HPF (0-4)
[2020-08-03 14:52] LABS: BILIRUBIN,URINE SMALL (NEG); CLARITY,URINE HAZY; COLOR,URINE AMBER; GLUCOSE,URINE NEG (NEG); NITRITE,URINE NEG (NEG)
[2020-08-03] MEDS ORDERED: NEOM10DR32 RIGHT EAR (15:07)
[2020-08-03] MEDS ORDERED: ONDA4TAB12 PO (15:07)
[2020-08-03] MEDS ORDERED: HYDR-2155 PO (15:07)
[2020-08-03 15:15] VITALS: BP 138/64
== END 2020-08-03 15:30 | disposition home or self-care (01) ==
LOC: ER 12:26
DX: H92.01 Otalgia, right ear (principal); E86.0 Dehydration; G43.909 Migraine, unspecified, not intractable, without status migrainosus; K21.9 Gastro-esophageal reflux disease without esophagitis; Z88.5 Allergy status to narcotic agent; Z91.011 Allergy to milk products
CPT/HCPCS: 36415; 80053; 81001; 83690; 83735; 85025; 96361; 96374; 96375; 99285; J2405; J3010; J3490; J7030